=== PATIENT | female | born 1960 | race Caucasian/White ===

== ENCOUNTER 2025-04-09 16:29 | Emergency (ER) | payer OTHER ==
[2025-04-09 16:36] VITALS: BP 133/74; PULSE 91; RESP 18; TEMP 98.3; BMI 24.9
[2025-04-09 17:34] LABS: ABSOLUTE IMMATURE GRANULOCYTES 0.02 x10^3/uL (0.0-0.031); BASOPHILS # 0.02 x10^3/uL (0.01-0.08); EOSINOPHIL % 1.7 % (0.7-5.8); EOSINOPHILS # 0.08 x10^3/uL (0.04-0.36); MCHC 33.1 g/dl (32.2-35.5); MEAN CELL VOLUME 88.3 fl (79.4-94.8); MEAN PLT VOLUME 10.2 fl (9.4-12.3); MONOCYTE # 0.41 x10^3/uL (0.24-0.86); MONOCYTE % 8.5 % (4.7-12.5); RDW 12.3 % (12.4-16.4)
[2025-04-09 17:50] LABS: INR 0.99 (0.83-1.09); PROTHROMBIN TIME (PATIENT) 10.8 SEC (9.7-13.0)
[2025-04-09] MEDS ORDERED: FAMOTIDINE 20 MG TABLET ONE (17:50)
[2025-04-09] MEDS ORDERED: MAG HYDROX/AL HYDROX/SIMETH 30 ML UNIT-DOSE CUP ONE (17:51)
[2025-04-09] MEDS ORDERED: ACETAMINOPHEN INJECTION 100 ML ONE (17:51)
[2025-04-09 17:53] LABS: ACTIVATED PTT 28.3 SECONDS (25.2-36.5)
[2025-04-09 17:58] LABS: CO2 27.0 mmol/L (21-32); GLUCOSE,RANDOM 164.0 mg/dL (74-106)
[2025-04-09] MEDS: FAMOTIDINE 20 MG TABLET PO ONE (17:59)
[2025-04-09] MEDS: ACETAMINOPHEN 1000 MG/100 ML BAG IVPB ONE (17:59)
[2025-04-09] MEDS: MAG HYDROX/AL HYDROX/SIMETH 30 ML UNIT-DOSE CUP PO ONE (17:59)
[2025-04-09 18:01] LABS: CREATININE 1.5 mg/dL (0.55-1.3); SGOT/AST 23.0 U/L (15-37); SGPT/ALT 25.0 U/L (13-61)
[2025-04-09 18:02] LABS: TOT PROT 7.2 g/dl (6.4-8.2)
[2025-04-09 18:04] LABS: ALK PHOS 88.0 U/L (45-117)
== END 2025-04-09 19:48 | disposition home or self-care (01) ==
LOC: JER 16:29
PROC: 3E033NZ Introduction of Analgesics, Hypnotics, Sedatives into Peripheral Vein, Percutaneous Approach (ICD-10-PCS; principal; 2025-04-09)
DX: R10.13 Epigastric pain (principal)
CPT/HCPCS: 36415; 71045-TC-FY; 76705-TC; 80053; 83690; 84484; 85025; 85610; 85730; 86850; 86900; 86901; 93005; 93010; 96374; 99285-25